=== PATIENT | female | born 2000 | race Hispanic/Latino ===

== ENCOUNTER 2024-01-06 19:41 | Emergency (ER) | payer BC, SELFPAY ==
[2024-01-06 19:42] VITALS: BP 130/90
--- NOTE | 2024-01-06 20:08 | ED.MUSCINJ ---
HPI-Injury
General
Chief Complaint: Musculo-Skeletal Complaint
Source: patient
Exam Limitations: none
Time Seen by Provider: 01/06/24 20:05
Nursing documentation reviewed up to this point in time: agreed with
Travel History
Have you had any contact with someone who has COVID-19?: No
Do you have any symptoms of coronavirus? Fever > 100 degrees, chills, cough, shortness of breath, sore throat, loss of taste or smell, muscle aches, or headache?: No
History of Present Illness-Injury
Initial Injury comments:
23-year-old female states she rolled her right ankle at home earlier today and now has pain in the lateral aspect of her right foot. She has been icing and elevating it.
Past History
Past History
ED Past Medical History: Other (Abd wall cellulitis)
ED Past Surgical History: Cholecystectomy
Social History
Tobacco: Non-smoker
Alcohol: Occasional
Personal: Single
Living: with family
Review of Systems
Review of Systems
Allergies reviewed?: Yes
All Other Systems: ROS reviewed and negative except as documented in HPI and ROS
Musculoskeletal: Reports other (Pain outer aspect of right foot)
Musculoskeletal Injury Exam
Musculoskeletal Injury Exam
Left Lateral Foot:
Pain with Movement?: Mild
Tender to palpation?: Mild (over proximal 4th and 5th metatarsals)
Soft tissue swelling?: Mild
Strain- Sprain- Tear (Connective tissue injury)?: Mild
Joint instability?: No
Malalignment/deformity?: No
Range of motion: Full
Distal skin color and temperature: normal-warm & good color
Capillary Refill: normal
Normal distal neurovascular exam?: Yes
Phy Exam
Physical Exam
Physical Exam:
PHYSICAL EXAMINATION:
General: no apparent distress, not acutely ill
Neuro: alert and oriented.
Psychiatric: well kept. interactive and cooperative
Musculoskeletal: Moves with ease
Skin: Warm, pink.
Injury Course
Orders/Labs/Results
Orders:
Orders
01/06/24 19:46
CR Foot - Right Min 3 Views Urgent
Comment:
Reason For Exam: injury
01/06/24 20:10
Steve Wrap Right-Treatment ONCE
MDM/Problems Addressed
Differential Diagnosis Includes:
Fracture versus sprain
MDM/Problems Addressed:
23-year-old female states she rolled her right ankle at home earlier today and now has pain in the lateral aspect of her right foot. She has been icing and elevating it.
X-ray right foot negative
Steve wrap applied
*Critical Care Note
Total Time (30-74mins, 75-104mins- exclusive of procedures): Not Applicable
ED Attending Note
-
Portions of this chart may have been created with voice recognition software.� Occasional wrong word or��sound alike� substitutions may have occurred due to the inherent limitations of voice recognition software.
Discharge Plan
Departure
Patient Disposition: Home (Routine Discharge)
Date of Disposition: 01/06/24
Time of Disposition: 20:11
Patient with high blood pressure during this ER visit?: No
Condition: Good
Discharge Problem:
Sprain of right foot
Instructions: Using Cold for Pain, Foot Sprain ED
Prescriptions:
No Action
sertraline 50 MG tablet
50 mg PO DAILY
Sulfamethox./Trimethoprim Ds 800 MG/160 MG
1 tab PO BID
cephalexin 500 MG capsule
500 mg PO BID Qty: 19 0RF
Referrals:
Giovany Mosqueda MD [Active] - As needed
Stand Alone Forms: Return to Work
Activity Restrictions/Additional Instructions:
As we discussed, there is no broken bone on your x-ray
See the orthopedic doctor if not much improved in the next 2 weeks.
Ibuprofen as needed for pain.
Wear the Steve wrap as needed for comfort, support, swelling.
Interventions
Interventions:
*Risk Screen - Suicide Last Done: 01/06/24 19:42
*General Assessment Last Done: 01/06/24 19:42
*Neglect/Abuse Screening Last Done: 01/06/24 19:42
ED- Fall Risk Assessment Last Done: 01/06/24 20:47
*ED COVID-19 Vaccine History Last Done: 01/06/24 20:47
*Nursing Disposition Last Done: 01/06/24 20:47
ED-Musculoskeletal Assessment Last Done: 01/06/24 20:30
Discharge Date and Time
Discharge Date/Time: 01/06/24 20:35
Print Language: MOHAWK
== END 2024-01-06 20:35 | disposition home or self-care (01) ==
LOC: EMR 19:41
PROVIDERS: EMERGENCY PHYSICIAN Emergency Medicine; FAMILY PHYSICIAN Family Medicine
DX: S93.601A Unspecified sprain of right foot, initial encounter (principal); X50.1XXA Overexertion from prolonged static or awkward postures, initial encounter
CPT/HCPCS: 99283; 73630

== ENCOUNTER 2024-10-06 22:44 | Emergency (ER) | payer BC, SELFPAY ==
[2024-10-06 22:46] VITALS: BP 140/94
--- NOTE | 2024-10-07 00:47 | ED.GENMED ---
History of Present Illness
General
Chief Complaint: Headache
Source: patient and family (Mother who is accompanying)
Exam Limitations: none
Time Seen by Provider: 10/07/24 00:39
Nursing documentation reviewed up to this point in time: agreed with
History of Present Illness
History of Present Illness:
This is a 23-year-old woman with longstanding history of migraines generally occurring once or twice a month. She follows with a neurologist. Chronically maintained on Topamax, Effexor, propranolol. She is prescribed as needed Fioricet and
Zofran. She complains of typical migraine that began yesterday, persistent throughout the day today and unrelieved with Fioricet, Zofran. She does admit to continued nausea, vomiting yesterday. She denies nasal congestion or sore throat nor
earache, denies fever, no neck nor back pain. Headache is primarily left side of her head. She does have mild photophobia but denies vision difficulty.
She adamantly denies risk of .
Past History
Past History
ED Past Medical History: Other (Abd wall cellulitis; migraine headaches, obesity)
ED Past Surgical History: Cholecystectomy
Social History
Tobacco: Non-smoker
Alcohol: Occasional
Personal: Single
Living: with family
Employment: Employed
Family History
Family History: Other (Noncontributory)
Phy Exam
Physical Exam
Physical Exam:
GENERAL: 23-year-old overweight woman appears her stated age. Awake and alert, pleasant, easily communicative and in no acute distress. Mother is accompanying.
EYE: pupils equal and reactive. Extraocular muscles intact. Anicteric
NECK: Supple, nontender, no meningismus, no significant adenopathy.
ENT: posterior pharynx is clear, oral mucosa is moist. TM clear b/l, nares patent.
CARDIAC: Regular rate and rhythm. no murmur.
LUNGS: Clear breath sounds bilaterally, no acute respiratory distress, no wheezes/rales/rhonchi
ABDOMEN: Soft, nondistended, without focal tenderness
NEUROLOGICAL: Alert and oriented x3, no focal neuro deficits. Gait is bobo and steady.
SKIN: Warm and dry, normal color, skin intact. No rash.
MUSCULOSKELETAL: No C/C/E. peripheral pulses are full and equal b/l. No palpable tenderness.
PSYCH: Normal and appropriate interaction.
Course
Orders/Labs/Results
Orders:
Orders
10/07/24 00:46
0.9% Sodium Chloride 1000 ml [Nss] 1,000 ml IV BOLUS
Diphenhydramine [Benadryl] 25 mg IV NOW STA
Ketorolac [Toradol] 15 mg IV NOW STA
Prochlorperazine [Compazine] 10 mg IV NOW STA
10/07/24 02:35
Dexamethasone Sod Phosphate [Decadron] 10 mg IV NOW STA
Ketorolac [Toradol] 15 mg IV NOW STA
Vital Signs
Initial and Last Documented VS:
Initial Vital Signs
Temp Pulse Resp BP Pulse Ox
97.8 F 104 20 140/94 98
10/06/24 22:46 10/06/24 22:46 10/06/24 22:46 10/06/24 22:46 10/06/24 22:46
Last Documented Vital Signs
Temp Pulse Resp BP Pulse Ox
97.8 F 98 18 124/81 94
10/06/24 22:46 10/07/24 02:24 10/07/24 02:24 10/07/24 02:24 10/07/24 02:24
MDM/Problems Addressed
Differential Diagnosis Includes:
Patient presents with migraine headache. Longstanding history of migraines.
Overall well in appearance, no red flags in history nor exam.
No indication for imaging nor laboratory studies.
Will treat with her typical migraine cocktail of medications including IV fluids, Compazine, Benadryl, Toradol.
Will continue to observe.
Chronic conditions affecting care: Other (Migraine headaches)
*Pulse Oximetry
Patient hypoxic: no
*Critical Care Note
Total Time (30-74mins, 75-104mins- exclusive of procedures): Not Applicable
Update Note
Update Note:
02:25
Patient sleeping upon reevaluation. Awakens easily. She notes no further nausea but continues with complaints of headache which she notes mild pain/pressure left supraorbital region only. There is mild tenderness left supraorbital region but no
soft tissue swelling nor erythema. Noted to have moderate allergic rhinitis on exam which may be contributing to an element of frontal sinus pain.
She continues to have no vision difficulties.
Will give an additional dose of Toradol as well as a dose of Decadron.
Will continue to observe.
Plan is for d/c to home with prompt follow up with neurologist for recheck.
ED Attending Note
-
Portions of this chart may have been created with voice recognition software.� Occasional wrong word or��sound alike� substitutions may have occurred due to the inherent limitations of voice recognition software.
Discharge Plan
Departure
Patient Disposition: Home (Routine Discharge)
Date of Disposition: 10/07/24
Time of Disposition: 02:43
Patient with high blood pressure during this ER visit?: No
Condition: Good
Discharge Problem:
Headache, migraine, Allergic rhinitis
Instructions: Migraines (DC), Seasonal Allergies ED
Prescriptions:
No Action
sertraline 50 MG tablet
50 mg PO DAILY
Sulfamethox./Trimethoprim Ds 800 MG/160 MG
1 tab PO BID
cephalexin 500 MG capsule
500 mg PO BID Qty: 19 0RF
Referrals:
My Camilo MD [Family Provider] -
Activity Restrictions/Additional Instructions:
Call your neurologist tomorrow for prompt follow up exam.
Interventions
Interventions:
*Risk Screen - Suicide Last Done: 10/06/24 22:46
*General Assessment Last Done: 10/07/24 01:00
*Neglect/Abuse Screening Last Done: 10/06/24 22:46
*ED- Fall Risk Assessment Last Done: 10/07/24 01:00
*ED COVID-19 Vaccine History Last Done: 10/07/24 01:00
*Nursing Disposition Last Done: 10/07/24 02:55
ED- Neurological Assessment Last Done: 10/07/24 01:00
Discharge Date and Time
Discharge Date/Time: 10/07/24 02:55
Print Language: BANGLADESHI
[2024-10-07] MEDS: NSS 1000 IV (00:55)
[2024-10-07] MEDS: COMPAZINE 10 MG IV (00:57)
[2024-10-07] MEDS: BENADRYL 25 MG IV (00:57)
[2024-10-07] MEDS: TORADOL 15 MG IV ×2 (00:57→02:37)
[2024-10-07 02:24] VITALS: BP 124/81
[2024-10-07] MEDS: DECADRON 10 MG IV (02:38)
== END 2024-10-07 02:55 | disposition home or self-care (01) ==
LOC: EMR 22:44
PROVIDERS: EMERGENCY PHYSICIAN Emergency Medicine; FAMILY PHYSICIAN Family Medicine
DX: G43.909 Migraine, unspecified, not intractable, without status migrainosus (principal); J30.9 Allergic rhinitis, unspecified; E66.3 Overweight; Z90.49 Acquired absence of other specified parts of digestive tract
CPT/HCPCS: 96374; 96375; 96376; 96361; 99284

== ENCOUNTER 2025-07-14 15:02 | Emergency (ER) | payer BC, SELFPAY ==
[2025-07-14 15:07] VITALS: BP 124/93
[2025-07-14 15:42] LABS: Hematocrit 38.8 % (37.0-47.0); Hemoglobin 12.8 g/dL (12.0-16.0); Mean Corp Hgb Conc. 33.0 g/dL (33.0-37.0); Mean Corpuscular Volume 84.9 fL (81.0-99.0); Nucleated Red Blood Cells % 0 %; Platelet Count 416 10^3/uL (130-400); Red Cell Dist. Width 13.2 % (11.5-14.5)
[2025-07-14 16:10] LABS: HCG, Serum Qualitative Screen Negative
[2025-07-14 16:11] LABS: ALT (SGPT) 41 U/L (0-35); AST (SGOT) 30 U/L (14-36); Albumin 4.5 g/dl (3.5-5.0); Alkaline Phosphatase 106 U/L (38-126); Blood Urea Nitrogen 11 mg/dl (7-17); Calcium 9.8 mg/dl (8.4-10.2); Carbon Dioxide 28 mmol/L (22-30); Chloride 103 mmol/L (98-107); Glucose 88 mg/dl (70-99); Potassium 4.5 mmol/L (3.5-5.1); Sodium 135 mmol/L (135-145); Total Protein 8.3 g/dl (6.3-8.2); eGFR > 60.00
[2025-07-14 19:05] VITALS: BMI 43.5
[2025-07-14 19:07] VITALS: BP 111/94
[2025-07-14] MEDS: NSS 500 IV (20:58)
[2025-07-14] MEDS: BENADRYL 25 MG IV (20:59)
[2025-07-14] MEDS: TORADOL 30 MG IV (21:00)
[2025-07-14] MEDS: COMPAZINE 10 MG IV (21:01)
--- NOTE | 2025-07-14 22:54 | ED.GENMED ---
History of Present Illness
General
Chief Complaint: Headache
Source: patient
Exam Limitations: none
Time Seen by Provider: 07/14/25 18:45
Nursing documentation reviewed up to this point in time: agreed with
History of Present Illness
History of Present Illness:
Patient to the emergency department for evaluation of migraine. She has a history of migraines and occipital neuralgia. States her typical pain medications are not helping. States she has had the migraine pain for the last 2 days. Brought self
to the emergency department for evaluation. She denies any fever or chills. She has no neck pain. No skin rash.
Past History
Past History
ED Past Medical History: Other (Abd wall cellulitis; migraine headaches, obesity)
ED Past Surgical History: Cholecystectomy
Social History
Tobacco: Non-smoker
Alcohol: Occasional
Personal: Single
Living: with family
Employment: Employed
Family History
Family History: Other (Noncontributory)
Review of Systems
Review of Systems
Allergies reviewed?: Yes
All Other Systems: ROS reviewed and negative except as documented in HPI and ROS
Constitutional: Reports no symptoms
EENT: Reports no symptoms
Respiratory: Reports no symptoms
Cardiac: Reports no symptoms
ABD/GI: Reports no symptoms
: Reports no symptoms
Musculoskeletal: Reports no symptoms
Skin: Reports no symptoms
Neurological: Reports headache
Psychiatric: Reports no symptoms
Phy Exam
General Physical Exam
General Presentation: mild distress
General age: appears stated age
General Skin: warm and dry
General Habitus: normal
Eye Exam
Eye Exam: PERRL, EOMI and other (No nystagmus)
Musculoskeletal Exam
Musculoskeletal Exam: full ROM and neuro vasc intact
Skin Exam
Skin Exam: normal color, warm/dry and no rash
Psychiatric Exam
Psychiatric Exam: normal mood/affect
Course
Orders/Labs/Results
Orders:
Orders
07/14/25 15:11
Test Result ONCE
07/14/25 15:34
Complete Blood Count/With Diff Urgent
Comprehensive Metabolic Panel Urgent
HCG, Serum Qualitative Screen Urgent
07/14/25 18:49
CT Head W/o Iv Contrast Urgent
Comment:
Reason For Exam: atypical migraine
07/14/25 20:06
Diphenhydramine [Benadryl] 25 mg IV NOW STA
Ketorolac [Toradol] 30 mg IV NOW STA
Prochlorperazine [Compazine] 10 mg IV NOW STA
07/14/25 20:07
0.9% Sodium Chloride 500 ml [Nss] 500 ml IV BOLUS
Abnormal Lab Results
07/14/25
15:34
Plt Count 416 H 10^3/uL
(130-400)
Creatinine 0.5 L mg/dL
(0.6-1.0)
ALT 41 H U/L
(0-35)
Total Protein 8.3 H g/dl
(6.3-8.2)
07/14/25 15:34
07/14/25 15:34
Vital Signs
Initial and Last Documented VS:
Initial Vital Signs
Temp Pulse Resp BP Pulse Ox
97.8 F 82 20 124/93 100
07/14/25 15:07 07/14/25 15:07 07/14/25 15:07 07/14/25 15:07 07/14/25 15:07
Last Documented Vital Signs
Temp Pulse Resp BP Pulse Ox
97.8 F 82 20 111/94 98
07/14/25 15:07 07/14/25 15:07 07/14/25 15:07 07/14/25 19:07 07/14/25 19:07
*Radiology
Radiology exam reviewed: radiology read reviewed
*Pulse Oximetry
SaO2: 98
Oxygen Mode of Delivery: Room air
Patient hypoxic: no
*Critical Care Note
Total Time (30-74mins, 75-104mins- exclusive of procedures): Not Applicable
Update Note
Update Note:
Patient to the emergency department for an atypical migraine. Typical pain medications are not working for her. There are no meningeal signs or symptoms. Vital signs are stable she remains afebrile. Neurologically she is at her baseline. Awake
alert and oriented. Labs reviewed, no concerning findings. Head CT completed, no acute findings. She was given migraine cocktail with relief of her symptoms. She will be discharged home and will follow-up with her neurologist. She was given
instructions on signs and symptoms to return to the emergency department and she is agreeable to this plan.
ED Attending Note
-
Portions of this chart may have been created with voice recognition software.� Occasional wrong word or��sound alike� substitutions may have occurred due to the inherent limitations of voice recognition software.
Discharge Plan
Departure
Patient Disposition: Home (Routine Discharge)
Date of Disposition: 07/14/25
Time of Disposition: 21:43
Patient with high blood pressure during this ER visit?: No
Condition: Good
Covid-19: Not Applicable
Discharge Problem:
Migraine
Instructions: Migraines (DC)
Prescriptions:
No Action
sertraline 50 MG tablet
50 mg PO DAILY
Sulfamethox./Trimethoprim Ds 800 MG/160 MG
1 tab PO BID
cephalexin 500 MG capsule
500 mg PO BID Qty: 19 0RF
Referrals:
My Camilo MD [Family Provider, Family Practice] - Tomorrow
Interventions
Interventions:
*General Assessment Last Done: 07/14/25 15:07
*Neglect/Abuse Screening Last Done: 07/14/25 15:07
*ED COVID-19 Vaccine History Last Done: 07/14/25 19:07
*ED Influenza Vaccine History Last Done: 07/14/25 19:07
[facility] Fall Risk Assessment Tool Last Done: 07/14/25 19:07
*Risk Screen - Suicide (C-SSRS) Last Done: 07/14/25 15:07
*Nursing Disposition Last Done: 07/14/25 22:42
ED- Neurological Assessment Last Done: 07/14/25 19:07
Discharge Date and Time
Print Language: [id number]
== END 2025-07-14 22:54 | disposition home or self-care (01) ==
LOC: EMR 15:02
PROVIDERS: EMERGENCY PHYSICIAN Emergency Medicine; FAMILY PHYSICIAN Family Medicine
DX: G43.909 Migraine, unspecified, not intractable, without status migrainosus (principal); M54.81 Occipital neuralgia; E66.9 Obesity, unspecified; Z68.41 Body mass index [BMI] 40.0-44.9, adult
CPT/HCPCS: 99284; 96374; 96375 ×2; 96361; 70450; 80053; 84703; 85025